=== PATIENT | female | born 1985 ===

== ENCOUNTER 2019-09-10 11:30 | Inpatient (IN) | payer BC ==
[~2019-09-10 11:30] MED LIST: Bupivacaine 0.25% HCL 30 ML VIAL ONE
[2019-09-10 11:54] VITALS: BMI 35.1
[2019-09-10] MEDS ORDERED: hydrALAZINE 20 MG/ML VIAL SLOW IVP PRN (12:09)
[2019-09-10] MEDS ORDERED: HYDROcodone/Acetaminophen 5/325 mg Tablet PO PRN ×2 (12:09)
[2019-09-10] MEDS ORDERED: Butorphanol Tartrate 1 MG/ML VIAL SLOW IVP PRN (12:09)
[2019-09-10] MEDS ORDERED: Acetaminophen 500 MG TAB PO PRN (12:09)
[2019-09-10] MEDS ORDERED: Lidocaine 1% (PF) 30 ML VIAL SC PRN (12:09)
[2019-09-10] MEDS ORDERED: Methylergonovine 0.2 MG/ML VIAL IM PRN (12:09)
[2019-09-10] MEDS ORDERED: Zolpidem Tartrate 5 MG TAB PO PRN (12:09)
[2019-09-10] MEDS ORDERED: Diphenoxylate HCl/Atropine Tablet PO PRN ×2 (12:09)
[2019-09-10] MEDS ORDERED: NS / Oxytocin 40 units/1000ml 1,000 ML IV PRN (12:09)
[2019-09-10] MEDS ORDERED: Misoprostol 200 MCG TAB PR PRN (12:09)
[2019-09-10] MEDS ORDERED: Promethazine HCl 25 MG/ML VIAL IM PRN (12:09)
[2019-09-10] MEDS ORDERED: Docusate 100 MG CAP PO PRN (12:09)
[2019-09-10] MEDS ORDERED: Carboprost 250 MCG/ML AMP IM PRN (12:09)
[2019-09-10] MEDS ORDERED: Ondansetron PF 4 MG/2 ML Vial IVP PRN (12:09)
[2019-09-10] MEDS ORDERED: Ibuprofen 800 MG TAB PO PRN (12:09)
[2019-09-10] MEDS ORDERED: NS w/ Oxytocin 10 units 500 ML IV SCH ×2 (12:15)
[2019-09-10] MEDS ORDERED: Penicillin G Potassium 5 MILL.UNITS in Sodium Chloride 0.9% 100 ML IVPB SCH (12:15)
[2019-09-10] MEDS ORDERED: Misoprostol 100 MCG TAB VAG SCH (12:15)
[2019-09-10] MEDS ORDERED: Lactated Ringer's 1,000 ML IV SCH (12:15)
--- NOTE | 2019-09-10 12:20 | PDOC.LDHP ---
Labor and Delivery H&P HPI: 33 y/o at 36 and 6/7 days presents for Medical Induction of labor, after clinic visit today for decreased movement resulted in a 6/10 BPP (- 2 for ASH and Non-Reactive NST in clinic). Due date: 09/18/19 Grav: 2 Para: 1 Current complications: oligohydramnios Abnormal US findings: Yes (DP at 0.7 cm (oligohydramnios)) Current medications: pre- vitamins Allergies/Adverse Reactions: Allergies Allergy/AdvReac Type Severity Reaction Status Date / Time No Known Allergies Allergy Verified 09/10/19 11:51 Social history: none - Physical Exam Vital signs reviewed and normal: yes General: NAD, resting Heart: RRR Lungs: CTAB Abdomen: gravid Extremeties: no edema FHT: category 1 - Assessment L&D Assessment: medically indicated induction - Plan Plan: admit to L&D, cervical ripening
[2019-09-10 12:59] LABS: Mean Corpuscular HGB CONC 32.5 g/dL (32.0-36.0); Mean Corpuscular Hemoglobin 29.2 pg (27.0-31.0); Mean Corpuscular Volume 89.7 fL (78.0-98.0); Mean Platelet Volume 8.2 fL (7.4-10.4); Platelet Count 200 thou/uL (130-400); RBC Distribution Width 13.3 % (11.5-14.5); Red Blood Cell (RBC) Count 4.46 mill/uL (4.20-5.40); White Blood Cell (WBC) Count 8.5 thou/uL (4.8-10.8)
[2019-09-10 13:38] LABS: Syphilis Antibody Nonreactive (Nonreactive); Syphilis Antibody Index 0.03 S/CO (<1.00 Non-Reactive)
[2019-09-10 13:39] LABS: HBSAg Index 0.17 S/CO (0-0.99); Hep B Surf Ag Non-Reactive S/CO (NonReactive)
[2019-09-10] MEDS ORDERED: Penicillin G 2.5 MILL.units 2.5 MILL.UNITS in Premix Bag 1 BAG IVPB SCH (16:15)
[2019-09-10] MEDS ORDERED: Fentanyl 4 mcg/Bup 0.1% Cadd 100 ML ONE (16:44)
[2019-09-10] MEDS ORDERED: Lidocaine 1% (PF) 30 ML VIAL ONE (18:52)
[2019-09-10] MEDS ORDERED: NS / Oxytocin 40 units/1000ml 1,000 ML ONE (18:52)
[2019-09-10] MEDS ORDERED: Misoprostol 200 MCG TAB ONE (19:55)
[2019-09-11] MEDS ORDERED: Benzocaine-Menthol 82.5 ML CAN TOP PRN (07:43)
[2019-09-11] MEDS ORDERED: Measles/Mumps/Rubella 10 MCG/0.5 ML VIAL SC ONE (07:43)
[2019-09-11] MEDS ORDERED: Milk Of Magnesia 30 ML UDCUP PO PRN (07:43)
[2019-09-11] MEDS ORDERED: diphenhydrAMINE 25 MG CAP PO PRN (07:43)
[2019-09-11] MEDS ORDERED: hydrALAZINE 20 MG/ML VIAL SLOW IVP PRN (07:43)
[2019-09-11] MEDS ORDERED: Misoprostol 200 MCG TAB VAG PRN (07:43)
[2019-09-11] MEDS ORDERED: Adacel (T-DAP) 0.5 ML SYRINGE IM ONE (07:43)
[2019-09-11] MEDS ORDERED: Varicella virus, LIVE 0.5 ML VIAL SC ONE (07:43)
[2019-09-11] MEDS ORDERED: Preparation H Ointment 28 GM TUBE PR PRN (07:43)
[2019-09-11] MEDS ORDERED: HYDROcodone/Acetaminophen 5/325 mg Tablet PO PRN (07:43)
[2019-09-11] MEDS ORDERED: Lanolin Ointment 7 GM TUBE TOP PRN (07:43)
[2019-09-11] MEDS ORDERED: Ondansetron PF 4 MG/2 ML Vial IVP PRN (07:43)
[2019-09-11] MEDS ORDERED: Promethazine HCl 25 MG/ML VIAL IM PRN (07:43)
[2019-09-11] MEDS ORDERED: Bisacodyl 10 MG SUPP PR PRN (07:43)
[2019-09-11] MEDS ORDERED: Zolpidem Tartrate 5 MG TAB PO PRN (07:43)
[2019-09-11] MEDS ORDERED: NS / Oxytocin 40 units/1000ml 1,000 ML IV SCH (07:43)
[2019-09-11] MEDS: Ferrous Sulfate 325 MG TAB PO SCH ×2 (08:18→16:07)
[2019-09-11] MEDS: Prenatal Vitamin 1 TAB PO SCH (08:39)
[2019-09-11] MEDS: Docusate Calcium (SURFAK) 240 MG CAP PO SCH ×2 (08:39→20:59)
[2019-09-11] MEDS: HYDROcodone/Acetaminophen 5/325 mg Tablet PO PRN ×3 (08:40→21:07)
[2019-09-11] MEDS: Ibuprofen 800 MG TAB PO SCH ×2 (13:59→20:59)
--- NOTE | 2019-09-11 18:06 | PDOC.PP ---
Post Progress Note Post Day #: 1 PO intake tolerated: yes Flatus: yes Ambulation: yes Vital Signs (12 hours) Temp Pulse Resp BP Pulse Ox 09/11/19 15:40 98.5 F 86 16 105/53 L 98 09/11/19 12:10 98.6 F 80 16 95/62 97 09/11/19 07:00 98.4 F 96 18 106/75 Weight Weight 192 lb - Physical Examination General: NAD Cardiovascular: no m/r/g, RRR Respiratory: clear to auscultation bilaterally, non-labored breathing Abdominal: + bowel sounds, lochia, no distention, appropriately TTP Extremities: negative homans (B) Skin: CS incision dry & intact, no rash Neurological: no gross focal deficits Psychiatric: A&Ox3, normal affect Result Diagrams: 09/10/19 12:49 Additional Labs: Post Labs Blood Type O POSITIVE 09/10/19 14:04 Hep Bs Antigen Non-Reactive S/CO (NonReactive) 09/10/19 12:49
--- NOTE | 2019-09-12 03:15 | DN ---
DATE OF PROCEDURE: 09/10/2019 TIME OF SERVICE: At 1929 [employer] Time. PREOPERATIVE DIAGNOSIS: Intrauterine at 38 weeks and 6 days with oligohydramnios. POSTOPERATIVE DIAGNOSIS: Intrauterine at 38 weeks and 6 days with oligohydramnios. PROCEDURE: Term medical induction of labor and spontaneous vaginal delivery over a second-degree midline laceration of the perineum. FINDINGS: Viable female infant weighing 3430 g or 7 pounds 9 ounces. Apgars eight and nine. QUANTITATIVE BLOOD LOSS: 131 mL. COMPLICATIONS: None. PROCEDURE IN DETAIL: The patient presented to [facility] where she was admitted to the labor and delivery service. The patient underwent a normal and uneventful labor with normal cervical dilatation until she was found to be completely dilated. She was then allowed to push and was able to bring the baby down and delivered the baby in a vertex presentation without difficulties. Once the head delivered in occiput anterior position, the shoulders followed spontaneously along with the rest of the baby's body. Once out the baby's mouth and nose were bulb suctioned. The cord was clamped and cut and baby was handed to waiting attendants. Cord blood was collected. Gentle fundal massage was performed and the placenta delivered intact without problems. Hemostasis was assured. Quantitative blood loss was calculated. Inspection of the cervix, vaginal vault, and perineum did not reveal any lacerations needing suturing. Once again, hemostasis was within normal limits and the patient was allowed to recover in the labor and delivery room. Baby went to nursery. Job ID: [id number]
[2019-09-12 06:08] LABS: #Eosinphils 0.1 thou/uL (0.0-0.7); #Lymphocytes 2.3 thou/uL (1.20-3.40); #Monocytes 0.5 thou/uL (0.11-0.59); #Neutrophils 4.5 thou/uL (1.40-6.50); %Basophils 0.5 % (0.0-1.0); %Eosinophils 1.2 % (0.0-10.0); %Lymphocytes 30.4 % (21.0-51.0); %Neutrophils 60.9 % (42.0-75.0); Hemoglobin 11.8 g/dL (12.0-16.0); Mean Corpuscular HGB CONC 33.3 g/dL (32.0-36.0); Mean Corpuscular Hemoglobin 30.1 pg (27.0-31.0); Mean Corpuscular Volume 90.5 fL (78.0-98.0); Mean Platelet Volume 8.2 fL (7.4-10.4); Platelet Count 157 thou/uL (130-400); RBC Distribution Width 13.4 % (11.5-14.5); Red Blood Cell (RBC) Count 3.91 mill/uL (4.20-5.40); White Blood Cell (WBC) Count 7.5 thou/uL (4.8-10.8)
[2019-09-12] MEDS: Ibuprofen 800 MG TAB PO SCH ×2 (06:44→13:30)
[2019-09-12 08:16] VITALS: BP 101/62; TEMP 98.5
[2019-09-12] MEDS: Prenatal Vitamin 1 TAB PO SCH (08:35)
[2019-09-12] MEDS: Docusate Calcium (SURFAK) 240 MG CAP PO SCH (08:35)
[2019-09-12] MEDS: Ferrous Sulfate 325 MG TAB PO SCH (09:31)
[2019-09-12] MEDS: HYDROcodone/Acetaminophen 5/325 mg Tablet PO PRN (12:35)
== END 2019-09-12 16:30 | disposition home or self-care (01) | DRG 806 ==
LOC: L&D/OP 11:30 → L&D 12:35 → 3SW 09-11 11:58
PROVIDERS: ADMIT Obstetrics & Gynecology; ATTEND Obstetrics & Gynecology
PROC: 10E0XZZ Delivery of Products of Conception, External Approach (ICD-10-PCS; principal; 2019-09-10)
PROC: 10907ZC Drainage of Amniotic Fluid, Therapeutic from Products of Conception, Via Natural or Artificial Opening (ICD-10-PCS; 2019-09-10)
PROC: 3E0P7VZ Introduction of Hormone into Female Reproductive, Via Natural or Artificial Opening (ICD-10-PCS; 2019-09-10)
DX: O36.8130 Decreased fetal movements, third trimester, not applicable or unspecified (principal); O41.03X0 Oligohydramnios, third trimester, not applicable or unspecified; Z37.0 Single live birth; Z3A.38 38 weeks gestation of pregnancy
CPT/HCPCS: 36415; 51702; 85025; 85027; 86780; 86850; 86900; 86901; 87340; J2001; J2540; J3490; S0020